=== PATIENT | male | born 1960 | race Caucasian/White ===

== ENCOUNTER 2022-06-13 16:26 | Observation (INO) ==
[2022-06-13] MEDS ORDERED: Ondansetron ODT 4 MG TAB.RAPDIS SL PRN (22:51)
[2022-06-13] MEDS ORDERED: Acetaminophen 325 MG TABLET PO PRN (22:51)
[2022-06-13] MEDS ORDERED: Melatonin 3 MG TABLET PO PRN (22:51)
[2022-06-13] MEDS ORDERED: Naloxone 0.4 MG/ML INJ IVP PRN (22:51)
[2022-06-13] MEDS: cefTRIAXone 1,000 MG in 0.9 % Sodium Chloride 10 ML IVP SCH (23:23)
[2022-06-13] MEDS: Azithromycin 250 MG TABLET PO SCH (23:23)
[2022-06-14] MEDS ORDERED: Ipratropium/Albuterol Neb 3 ML IH PRN (00:25)
[2022-06-14 01:50] LABS: Basophils % 0.2 %; Hematocrit 30.6 % (37.5-50.1); Hemoglobin 10.3 g/dL (12.9-16.9); Immature Granulocytes % 0.5 % (0-4); Lymphocytes # 0.7 K/mcL (0.6-4.6); Lymphocytes % 3.5 %; Mean Corpuscular HGB Conc 33.7 g/dL (31.6-35.5); Mean Corpuscular Hemoglobin 31.2 pg (28.0-33.3); Mean Corpuscular Volume 92.7 fL (83.0-100.0); Mean Platelet Volume 9.5 fL (9.4-12.4); Monocytes # 0.2 K/mcL (0.0-1.3); Monocytes % 1.1 %; Neutrophils # 18.8 K/mcL (1.6-8.9); Platelet Count 590 K/mcL (140-400); Red Cell Distribution Width 14.5 % (11.5-14.5); Segmented Neutrophils % 94.7 %; White Blood Count 19.9 K/mcL (4.3-11.1)
[2022-06-14 02:05] LABS: % Iron Saturation 8 % (20-55); Alanine Aminotransferase 4 Units/L (7-52); Albumin 2.8 g/dL (3.5-5.7); Albumin/Globulin Ratio 0.9 (1.1-2.2); Alkaline Phosphatase 44 Units/L (34-104); Aspartate Amino Transferase 5 Units/L (13-39); BUN/Creatinine Ratio 23 (6-26); Bilirubin,Total 0.3 mg/dL (0.3-1.0); Blood Urea Nitrogen 15 mg/dL (8-23); Calcium 8.2 mg/dL (8.6-10.3); Carbon Dioxide 25 mEq/L (23-29); Chloride 104 mEq/L (98-107); Chol/HDL Ratio 4.1 (0-4.9); Cholesterol 107 mg/dL (< 200); Globulin 3.1 g/dL (2.4-3.5); Glucose 182 mg/dL (70-105); HDL Cholesterol 26 mg/dL (40-59); Iron 15 mcg/dL (65-175); LDL Cholesterol,Calculated 71 mg/dL (< 100); Osmolality,Calculated 283 (280-300); Phosphorous 2.7 mg/dL (2.7-4.5); Sodium 134 mEq/L (136-145); Total Protein 5.9 g/dL (6.4-8.9); Transferrin 140 mg/dL (203-362); Triglycerides 49 mg/dL (< 150)
[2022-06-14 02:20] LABS: Folate 5.3 ng/mL (3.0-16.0)
[2022-06-14 02:32] LABS: Adenovirus Not Detected (Not Detect); Coronavirus 229E Not Detected (Not Detect); Coronavirus HKU1 Not Detected (Not Detect); Coronavirus NL63 Not Detected (Not Detect); Coronavirus OC43 Not Detected (Not Detect); Human Metapneumovirus Not Detected (Not Detect); Human Rhinovirus/Enterovirus Not Detected (Not Detect); Influenza A Subtype 2009 H1 Not Detected (Not Detect); SARS-CoV-2 Not Detected (Not Detect)
[2022-06-14 02:33] LABS: Bordetella Pertussis Not Detected (Not Detect); Chlamydophila pneumoniae Not Detected (Not Detect); Influenza B Not Detected (Not Detect); Mycoplasma pneumoniae Not Detected (Not Detect); Parainfluenza Virus 1 Not Detected (Not Detect); Parainfluenza Virus 2 Not Detected (Not Detect); Parainfluenza Virus 3 Not Detected (Not Detect); Parainfluenza Virus 4 Not Detected (Not Detect); Respiratory Syncytial Virus Not Detected (Not Detect)
[2022-06-14] MEDS: Ipratropium/Albuterol Neb 3 ML IH SCH ×6 (04:51→23:29)
[2022-06-14] MEDS: Budesonide/Formoterol 160/4.5 1 PUFF INH IH SCH ×2 (07:35→20:13)
[2022-06-14] MEDS: Azithromycin 250 MG TABLET PO SCH (08:33)
[2022-06-14] MEDS ORDERED: Cyanocobalamin (B-12) 1,000 MCG/ML VIAL IM ONE (08:41)
[2022-06-15] MEDS: cefTRIAXone 1,000 MG in 0.9 % Sodium Chloride 10 ML IVP SCH (00:32)
[2022-06-15 02:31] LABS: Basophils % 0.1 %; Eosinophils % 0.1 %; Hematocrit 30.4 % (37.5-50.1); Hemoglobin 10.4 g/dL (12.9-16.9); Immature Granulocytes % 0.5 % (0-4); Lymphocytes # 2.7 K/mcL (0.6-4.6); Lymphocytes % 16.4 %; Mean Corpuscular HGB Conc 34.2 g/dL (31.6-35.5); Mean Corpuscular Hemoglobin 31.5 pg (28.0-33.3); Mean Corpuscular Volume 92.1 fL (83.0-100.0); Mean Platelet Volume 9.3 fL (9.4-12.4); Monocytes # 0.8 K/mcL (0.0-1.3); Monocytes % 4.9 %; Neutrophils # 12.9 K/mcL (1.6-8.9); Platelet Count 632 K/mcL (140-400); Red Cell Distribution Width 14.6 % (11.5-14.5); White Blood Count 16.6 K/mcL (4.3-11.1)
[2022-06-15 02:50] LABS: BUN/Creatinine Ratio 24 (6-26); Blood Urea Nitrogen 15 mg/dL (8-23); Carbon Dioxide 23 mEq/L (23-29); Chloride 106 mEq/L (98-107); Glucose 106 mg/dL (70-105); Osmolality,Calculated 285 (280-300); Potassium 3.5 mEq/L (3.5-5.1); Sodium 137 mEq/L (136-145)
[2022-06-15 07:00] VITALS: BP 140/72; PULSE 80; TEMP 98.9
[2022-06-15] MEDS: Ipratropium/Albuterol Neb 3 ML IH SCH ×2 (07:59→11:13)
[2022-06-15] MEDS: Budesonide/Formoterol 160/4.5 1 PUFF INH IH SCH (07:59)
[2022-06-15 08:01] VITALS: O2SAT 93
[2022-06-15] MEDS ORDERED: Cyanocobalamin (B-12) 1,000 MCG/ML VIAL IM SCH (09:00)
[2022-06-15] MEDS: Azithromycin 250 MG TABLET PO SCH (09:13)
== END 2022-06-15 14:29 | disposition home or self-care (01) ==
LOC: 3BNU → SUATTDRO 21:54
PROVIDERS: ADMIT Internal Medicine; ATTEND Internal Medicine